=== PATIENT | female | born 1990 | race Caucasian/White ===

== ENCOUNTER 2022-07-28 10:15 | Outpatient (RCR) | payer BC, OTHER, SELFPAY ==
--- NOTE | 2022-06-02 12:57 | PT.OPDNX ---
[facility] Daily Note [facility] Daily Note Start: 12/22/21 16:17 Freq: Status: Active Protocol: Document 06/02/22 08:33 ARR (Rec: 06/02/22 09:37 ARR [id number]) E-signed By Gem Mclean DPT PT OP Daily Progress Note Visit Information Note Type Daily Note,Recert/Progress Note Visit Number 12 Cancellation Note Cancelled Documentation Eval 03/03/22 POC 03/03/22-06/02/21 Insurance Information Insurance Name [facility] Medical Diagnosis M62.08 separation of muscle ( nontraumatic), other site Treating Diagnosis R27.8 Lack of coordination ( muscle incoordination) M62.0 Separation of muscle ( nontraumatic) (Diastasis of muscle) N94.2 vaginismus Referring MD Joanne Rubio ([facility]) Subjective Subjective Feels she might have a hernia. Was in the car with the kids facing backward kiddo dropped quickly so she had to catch a weight. Feels like something popped in belly and is very tender. Feels like it's in belly button. Belly is tender to the touch. Hasn't tried to be too active so unsure if that increases it. Pain Comments -SLS -Hip hinge -Deadlift - Home Exercise Home Exercise Comments OTHER: -MOnitoring for upper ab gripping -Skin rolling upper abs 3-5 min prior to abdominal exercises Access Code: [email or web address] URL: [email or web address] Date: 12/22/2021 Prepared by: Gem Mclean Program Notes -Posture - elongation through spine, pulling through crown of head -RIbs stacked over pelvis Exercises Sidelying Thoracic and Shoulder Rotation - 1 x daily - 7 x weekly - 6-8 reps Diaphragmatic Breathing in Supported Child's Pose with Pelvic Floor Relaxation - 1 x daily - 7 x weekly - 6-8 reps Hands and Knees Breathing - 1- 2 x daily - 7 x weekly - 2 sets - 6-8 reps 90-90 or Supine Breathing - 1 x daily - 7 x weekly - 2 sets - 6-8 reps Objective Other/Pertinent Objective 06/02/22 -DR: 2-3 knuckle depth and 3.5 fingers at umbilicus / 1 knuckle depth and 2 fingers below umbilicus / 2 knuckle depth and 3 fingers above umbilicus -Very TTP right over naval but surrounding area of DR, greatest tenderness with greater depth -TA inhibition with inc'd upper ab gripping 05/20/22: -DR: 1st knuckle depth and 2 fingers at umbilicus / <!/2 knuckle depth and 1 fingers below umbilicus / <1/2 knuckle depth and 1.5 fingers above umbilicus Eval -DR: 2nd knuckle depth and 3 fingers at umbilicus / 1 knuckle depth and 2 fingers below umbilicus / 1 knuckle depth and 3 fingers above umbilicus Patient Instructed in Risks/Benefits Yes Therapeutic Exercise Therapeutic Exercise Minutes (minutes) 10 Therapeutic Exercise: To Restore -DR assessment as noted above Functional Status -Discussion of progress and POC -Discussion of PT recommendations for contacting provider for symptoms Manual Therapy Techniques Manual Therapy Minutes (minutes) 25 Manual Therapy Techniques MT: indicated for improving joint mobility, reducing tissue irritability, and improving range of motion. -Recti release -Oblique release bilat -STM with cupping over abdominal wall. STM into recti muscle bellies and obliques Neuromuscular Re-Ed Neuromuscular Reeducation Minutes ( 20 minutes) Neuromuscular Reeducation Comments Neuromuscular reeducation: Indicated to facilitate improved muscle firing and postural awareness through the use of tactile cues. Also to improve breathing mechanics. -TA on an exhale 3 x 6 reps -Abs with bent LE fallout 2 x 10 reps ea LE -Bridge x 8 reps, 10 x 5 holds -Unilat bridge 2 x 6 reps ea side -TA with alt LE march x 10 reps Treatment Minutes Timed Code Treatment Minutes 55 Total Treatment Time 55 Billing Units Manual Therapy Units 2 Neuromuscular Reeducation Units 1 Therapeutic Exercise Units 1 Assessment/Impression Assessment/Impression Pt having onset of abdominal pain - noting increased TA inhibition with TTP over area of linea alba greatest over umbilicus. TTP also greatest with increased depth. Does appear pain could be secondary to strain of myofascial tissues over area of linea alba from poor P mgmt and abdominal wall loading. But cannot rule out other medical contributions due to area of greatest TTP. Pt to message MD regarding symptoms and any further med mgmt needed. Did provide pt with KT strips for DR KTaping techniques. Pt to return to TA activation/ strength and increase x/wk working on TA activation. Pt to RTC in 2-3 wks, is on waitlist for cancellations. Pt agreeable with this plan Pt likely to benefit from PT beyond POC dates as she continues to require cues for motor recruitment patterns, posture/stability, and balance . Plan of Care Physical Therapy Goals STG (within 6 wks) 1)pt will initiate HEP without increased sx?s 2)Pt will isometrically activate TA and PFM with bottom up activation on at least x 15 consecutive reps to reduce downward pressure on abdominal wall and PF LTG (Within 12 wks) 1)Pt will be indep in HEP for director long term care mgmt. of sx?s 2)Pt will be able to generate tension along diastasis recti with depth not past 1st knuckle 3)Pt will be able to return to yoga, pilates, and walking without increased abdominal or low back symptoms. 4)Pt will report at least 70% improvement in sxs since start of therapy for improved ADLs 5) Pt will demonstrate proper coordination of motor recruitment patterns for PF then TA activation during dynamic UE/LE movements in all postures while maintaining diaphragmatic breathing pattern Daily Plan of Care Comments PLAN: -Reassess cancelling one visit and keeping others -Standing stability/balance exercises -Continue to progress core/ glut strength (review side plank, bridge, consider kneeling glut finder, quadruped knee lifts, sidelying clam, sidleying hip abduction, standing glut med wall press). Recertification Information Initial Certification Date 03/03/22 Recertification Start Date 06/02/22 Reasons to Continue Skilled Therapy Pt had been seen for abdominal strain, pelvic dysfunction, core weakness for 12 visits from 03/03/22 to 06/02/2022 during this episode of physical therapy. Focus of therapy on transverse abdominals and pelvic floor strengthening, and LE stretching. Interventions including self-care, therapeutic exercise, manual therapy, neuromuscular re- education. Pt had been doing very well progressing since evaluation. However, pt came to clinic this date reporting abdominal pain after lifting baby. Continued assessment revealed progression of DR from prior visit, TA inhibition, and TTP at area of DR including umbilicus. At this time cannot rule out other medical contributions, recommended contacting provider. Do feel component of sx's are secondary to myofascial strain of linea alba/DR with poor core bracing . Due to flare of symptoms, pt to benefit from extension of current plan of care 1x/wk x 6 visits after current session. Skilled PT is continued to be indicated for progression of strength, pain reduction, and return to PLOF Rehabilitation Potential Good Continued Plan of Care and Interventions Core/glut strengthening to improve functional mobility and lifting Provider Signature Shows Agreement With POC & Medical Necessity Physician Comment/Change Comment or Changes Physician NPI Number #
== END 2022-08-01 12:06 | disposition home or self-care (01) ==
PROVIDERS: Visit Provider Advanced Practice Midwife
DX: N94.2 Vaginismus (principal); Z51.89 Encounter for other specified aftercare
CPT/HCPCS: 97110; 97112; 97140; 97161

== ENCOUNTER 2022-11-04 13:54 | Outpatient (CLI) | payer BC, SELFPAY ==
--- NOTE | 2022-11-04 14:00 | CRLHL7_ITS ---
For Patients: As a result of the Cures Act, medical imaging exams and procedure reports are released immediately into your electronic medical record. You may view this report before your referring provider. If you have questions, please contact your health care provider. INDICATION: First trimester scan, establish dates. COMPARISON: None. TECHNIQUE: Real-time palacios-scale imaging of the pelvis was performed. FINDINGS: Sonographic imaging demonstrates a single living intrauterine gestation. The embryo demonstrates a regular cardiac rate measuring 159 beats per minute. The embryo`s crown-rump length measurement of 1.6 cm corresponds to a gestational age of 8 weeks 0 days with a sonographic due date of June 16, 2023. There is a normal-appearing yolk sac measuring 2.8 mm. There are no gross abnormalities noted within the embryo at this early state of development. The placenta has not yet developed. The gestational sac has a normal appearance and there is no evidence of a perigestational hemorrhage. The amount of fluid within the sac appears appropriate for gestational age. The cervix is closed. The myometrium appears normal. The ovaries are of normal size. The right ovary measures 4.0 x 2.0 x 3.3 cm and contains small corpus luteum cyst of measuring 2.3 x 1.5 x 2.3 cm. The left ovary measures 3.6 x 1.6 x 3.1 cm. There are no suspicious fluid collections noted in the cul-de-sac. IMPRESSION: Normal first trimester OB ultrasound exam. Gestational age calculated at 8 weeks 0 days with a sonographic due date of June 16, 2023. Dictated by Tejas Benoit MD @ 11/04/2022 4:23:01 PM (Electronically Signed)
== END 2022-11-04 13:55 | disposition home or self-care (01) ==
LOC: US 13:54
PROVIDERS: Visit Provider Advanced Practice Midwife
DX: Z34.91 Encounter for supervision of normal pregnancy, unspecified, first trimester (principal); Z3A.08 8 weeks gestation of pregnancy
CPT/HCPCS: 76817; 84443; 86592; 86703; 86762; 86787; 86803; 86850; 86900; 86901; 87086; 87340

== ENCOUNTER 2023-01-26 12:56 | Outpatient (CLI) | payer BC, SELFPAY ==
--- NOTE | 2023-01-26 13:00 | CRLHL7_ITS ---
For Patients: As a result of the Century Cures Act, medical imaging exams and procedure reports are released immediately into your electronic medical record. You may view this report before your referring provider. If you have questions, please contact your health care provider. OBSTETRICAL ULTRASOUND, 01/26/2023 CLINICAL HISTORY: anatomy survey. ANDREINA by LMP: 06/16/2023. GA: 19 w, 6 d. FINDINGS: position: Multiple positions. Cervix: Visualized. Technique: Transabdominal. Length of closed cervix: 4.6 cm. Placenta/cord: Anterior. Technique: Transabdominal. Placenta tip to internal OS: 7.4 cm. Umbilical Cord: 3-vessel cord. Placenta insertion: Central. Amniotic Fluid: 4.1 cm SDP (greater than/equal to: 2- less than 8 cm). SURVEY: Observed Structures Calvarium/Spine: Cerebellum: 2.1 cm, 20 w 5 d. Cisterna Magna: 5.6 mm. Nuchal Fold: 5.2 mm. Lateral Ventricle: 6.5 mm. CSP: Yes. Midline Falx: Yes. Choroid Plexus: Yes. Spine: Yes. Abdomen: Stomach: Yes. Abd Cord Insertion: Yes. Urinary Bladder: Yes. Kidneys: Yes. Diaphragm: Yes. Face: Nose/lips: Yes. Orbital view: Yes. Profile: Yes. Limbs: Upper Extremities: Yes. Lower Extremities: Yes. Hands: Yes. Feet: Yes. Vascular: Four-Chamber Heart: Yes. LVOT: Yes. RVOT: Yes. 3VV: Yes. 3VTV: Yes. BPD: 4.7 cm. 20 w 1 d, 63 percent. HC: 17.6 cm. 20 w 1 d, 54 percent. AC: 16.3 cm. 21 w 3 d, 88 percent. FL: 3.0 cm. 19 w 3 d, 26 percent. FL/AC: 8.6 percent. HC/AC Ratio: 1. Heart rate: 145 beats per minute. age by this US: 20 w 3 d. ANDREINA by this US: 06/12/2023 EFW: 352 g. Weight: 0 lbs, 12 oz. Percentile by ANDREINA: 77 percent. IMPRESSION: Single live intrauterine gestation. No gross anomalies visualized. Lakeisha Caruso M.D. [email or web address] Transcribed: 9:35 adavonte PRICE/Dictated by: Lakeisha Caruso MD @ 01/27/2023 6:47:00 AM (Electronically Signed)
== END 2023-01-26 12:57 | disposition home or self-care (01) ==
LOC: US 12:57
PROVIDERS: Visit Provider Advanced Practice Midwife
DX: Z34.92 Encounter for supervision of normal pregnancy, unspecified, second trimester (principal); Z3A.19 19 weeks gestation of pregnancy
CPT/HCPCS: 76805

== ENCOUNTER 2023-03-28 11:00 | Outpatient (CLI) | payer BC, SELFPAY | END 2023-03-28 11:01 | disposition home or self-care (01) | LOC: NFLDREF 03-30 22:20 | PROVIDERS: Visit Provider Advanced Practice Midwife | DX: Z34.93 Encounter for supervision of normal pregnancy, unspecified, third trimester (principal); Z3A.28 28 weeks gestation of pregnancy | CPT/HCPCS: 86592 ==

== ENCOUNTER 2023-04-10 12:50 | Outpatient (CLI) | payer BC, SELFPAY ==
--- NOTE | 2023-04-10 13:00 | CRLHL7_ITS ---
For Patients: As a result of the Century Cures Act, medical imaging exams and procedure reports are released immediately into your electronic medical record. You may view this report before your referring provider. If you have questions, please contact your health care provider. INDICATION: MEASURING LARGE FOR DATES COMPARISON: 01/26/2023 TECHNIQUE: Real time palacios scale imaging of the fetus was performed. FINDINGS: Sonographic imaging demonstrates a single living intrauterine gestation. Fetus demonstrates a regular cardiac rate of 134 beats per minute. Fetus has a vertex position. The placenta lies anteriorly. Amniotic fluid volume appears normal and there is a single deepest vertical pocket: 5.4 cm. The estimated weight is 1741gm which lies at the 69th %. On the prior OB ultrasound exam dated 01/26/2023 the estimated weight was at the 77th%. BPD 39th percentile. HC 56th percentile. AC 85th percentile. FL 33rd percentile. The HC/AC ratio measures 1.04 range (0.96-1.17). IMPRESSION: Sonographic gestational age 31 weeks 1 day and sonographic due date 06/11/2023. Sonographic age 5 days ahead of the clinical age. Estimated weight 69th percentile. Abdominal circumference 85th percentile. Dictated by Nando Will MD @ 04/12/2023 6:38:59 AM (Electronically Signed)
== END 2023-04-10 12:51 | disposition home or self-care (01) ==
LOC: US 12:51
PROVIDERS: Visit Provider Advanced Practice Midwife
DX: O36.63X0 Maternal care for excessive fetal growth, third trimester, not applicable or unspecified (principal); Z3A.31 31 weeks gestation of pregnancy
CPT/HCPCS: 76816

== ENCOUNTER 2023-05-24 11:31 | Outpatient (CLI) | payer BC, SELFPAY ==
[2023-05-25 13:07] LABS: Strep B DNA Probe Negative (Negative); Strep B Susceptibility Needed? No
== END 2023-05-24 11:32 | disposition home or self-care (01) ==
LOC: NFLDREF 11:31
PROVIDERS: Visit Provider Advanced Practice Midwife
DX: Z34.93 Encounter for supervision of normal pregnancy, unspecified, third trimester (principal)
CPT/HCPCS: 87081; 87653

== ENCOUNTER 2023-05-31 13:05 | Outpatient (CLI) | payer BC, SELFPAY ==
--- OUTSIDE RECORDS SUMMARY | 2023-05-31 13:17 | XMS_ITS | Clinical Summary ---
Author Name Unknown Organization [employer] [facility] Address [place], [place] [address] Care Team Providers Care Intelligence Director Name Role Phone [facility] Primary Care Provider Unavailabl e Allergies No known active allergies Medications Medication Sig Dispensed Refills Start Date End Date Status Cholecalciferol, Vitamin D3, (VITAMIN D-3) 2,000 unit tablet Take 1 tablet by mouth once daily. 0 11/17/2017 Active calcium carbonate CHEWABLE (TUMS E-X) 750 mg chewable tablet Daily as needed 0 A ctive cholecalciferol, Vitamin D3, 2,000 unit tablet Daily 0 Active meclizine (ANTIVERT) 25 mg tabletIndications:Verti go Take 1 Tablet (25 mg) by mouth 3 times daily if needed for Vertigo. 20 Tablet 0 06/16/2022 Active ondansetron (ZOFRAN ODT) 4 mg disintegrating tabletIndications:Influ damaso-like illness Place 1 Tablet (4 mg) on the tongue every 8 hours if needed for Nausea/Vomiting . 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 ? 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 ? 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 Normal HSG 3 IUIs and then did a retrieval in july and then did a frozen transfer due to high estrogen levels. Did IVF 09/2017 and has 2 embryos left. PCOS (polycystic ovarian syndrome) 08/05/2015 High risk , antepartum Immunizations Name Administration Dates Next Due DTP 05/25/1992,06/10/1991,04/08/1991 ,02/04/1991 DTaP 11/06/1995 HIB PRP-OMP (PedvaxHIB) 03/16/1992,04/08/1991, Hepatitis A (Adult) 12/02/2009 Hepatitis B (Peds) 12/18/1992,07/06/1992, 993 Human Papilloma Virus Vaccine 07/31/2007, 007,12/27/2006 07/01/2007 Influenza, IIV4 03/20/2017,06/03/2015 MMR 09/16/2002,03/16/1992 Meningococcal Vaccine (Menveo) 12/02/2009 Oral Polio Vaccine 11/06/1995,05/25/1992, 991,02/04/1991 Td (Age >=7 Years) 09/16/2002 Tdap 03/20/2017 Family History Medical History Relation Name Comments Other Father in far m accident, adopted Mayberry syndrome Maternal Aunt Kalyani Diabetes Maternal Grandfather Heart Disease Maternal Grandfather Cancer Maternal Grandmother undeter mined Diabetes Maternal Grandmother d at the age of 82 Good Health Mother Unknown Paternal Aunt Unknown Paternal Grandfather Unknown Paternal Grandmother Unknown Paternal Uncle Anxiety disorder Sister [place] Depression Sister [place] Personality disorder Sister [place] Relation Name Status Comments Father Maternal Aunt Kalyani Alive Maternal Grandfather Alive Maternal Grandmother Mother Alive Paternal Aunt Father adopted Paternal Grandfather Father adopted Paternal Grandmother Father Adopted Paternal Uncle Father adopte d Sister [place] Alive Social History Tobacco Use Types Packs/Day Years Used Date Smoking Tobacco: Never Smokeless Tobacco: Never Tobacco Cessation:Counseling Given: Yes Alcohol Use Standard Drinks/Week Comments No 0 (1 standard drink = 0.6 oz pur e alcohol) rarely Sex and Gender Information Value Date Recorded Sex Assigned at Not on file Gender Identity Not on file Sexual Orientation Not on file Obstetrics History Para Term AB IAB SAB Ectopic Multiple Livin g Live Births 1 0 0 0 0 0 0 0 0 0 Date Outcome GA Total Labor Labor/2nd/3rd Weight Sex Delivery Anes PTL Nataly A1 A5 Name Cl in Last Filed Vital Signs Vital Sign Reading Time Taken Comments Blood Pressure 95/62 06/16/2022 8:04 AM CONNIE SCRATCHER Pulse 110 06/16/2022 8:04 AM CONNIE SCRATCHER Temperature 37.1 ??C (98.8 ??F) 06/16/2022 8:04 AM CS T Respiratory Rate 18 06/16/2022 8:04 AM CONNIE SCRATCHER Oxygen Saturation 96% 06/16/2022 8:04 AM CONNIE SCRATCHER Inhaled Oxygen Concentration - - Weight 84.8 kg (187 lb) 06/16/2022 8:04 AM CONNIE SCRATCHER Height 183 cm (6' 0.05) 11/17/2017 8:16 AM CDT Body Mass Index 25.33 11/17/2017 8:16 AM CDT Plan of Treatment Health Maintenance Due Date Last Done Comments COVID-19 vaccine series (#1) 06/06/1991 Hepatitis C screening for age 18-79 2008 Depression screening for age 12+ 03/20/2018 03/20/2017, 07/01/2015 BMI (ht and wt on same day) for age 18+ 11/17/2018 11/17/2017, 11/06/2017, 07/03/2017, Additional history exists Influenza for age 9-49 01/20/2023 03/20/2017, 2015 Pap test for age 21-65 03/17/2023 0, 07/20/2016 (Completed outside of [facility]), 10/25/2012 (Completed outside of [facility]) Tetanus booster 03/20/2027 03/20/2017, 09/16/2002 Tdap Completed 03/20/2017 HIV for age 15-65 Completed 11/17/2017 Pneumococcal series for age 6-64 Aged Out No longer eligible based on patient's age to complete this topic Care Teams Intelligence Director Relationship Specialty Start Date End Date Lisa Galindo PCP - General 11/11/16
[2023-05-31 13:19] VITALS: PULSE 95; O2SAT 96
--- NOTE | 2023-05-31 15:34 | PC.OBNST ---
NST Note NST Note Start: 05/31/23 13:15 Freq: ONCE Status: Active Protocol: Document 05/31/23 15:00 WK (Rec: 05/31/23 15:24 WK [id number]) NST Note 4 Para (# of births) 3 EDC 06/16/23 Gestational Age In Weeks & Days 37 Weeks & 5 Days Patient Presented with Complaint(s) of Other Other Complaints C/O feeling dizzy and lightheaded. Reactive Yes RN Aga Date 05/31/23 Reactive Yes RN JSchuhmac Date 05/31/23 OB NST charge Yes Complete NST Note via Write Note Yes The provider's electronic signature indicates the NST is reactive/appropriate for gestational age. *Note to provider: If an addendum is required, open the patient's chart and click on the note under the Nurse/Allied Health tab.
== END 2023-05-31 14:50 | disposition home or self-care (01) ==
LOC: OB OUT 13:05 → OB 13:14
PROVIDERS: Visit Provider Advanced Practice Midwife
DX: Z34.93 Encounter for supervision of normal pregnancy, unspecified, third trimester (principal); Z3A.37 37 weeks gestation of pregnancy
CPT/HCPCS: 59025; G0463

== ENCOUNTER 2023-06-06 15:31 | Inpatient (IN) | payer BC, SELFPAY ==
[2023-06-06] VITALS (14 sets, daily range): BP systolic 97–133; BP diastolic 57–72; PULSE 63–104; RESP 16; TEMP 36.4–36.8; O2SAT 97–99; BMI 26.4
--- NOTE | 2023-06-06 15:09 | P.LDBA_ITS ---
Subjective History of Present Illness Time Seen by Provider: 15:10 Date Seen: 06/06/23 Specific Issues/Plans H&P done by DOMINGO Ernst on 05/31/2023 1. Hx of infertility r/t PCOS. 1st IVF, spontaneous 2nd, 3rd, current 2. Hx of oligo with first . u/s ordered: SDP 5.4 at 30 wks 3. 2nd baby breech, turned prior to ECV though. Vtx at 32 wks 4. Measuring large for dates at 28 weeks. u/s ordered for growth, will also check fluid r/t hx of oligo 30 wks: EFW 69%, SDP 5.4 Pap due pp COVID: declines Flu: patient does not get this TDAP: 04/10/23 RSV: declines 32wk Mental Health: Comments: Graciela is being admitted to Labor and Delivery for active labor. She is a 32 year old G 4 P 3 at?38.4 weeks gestation. Her full history and physical was dictated by Bill Rubio on 05/31/2023. Please see this for details. She states ctx started sometime this morning. They have not become more intense at this time, but are not going away, and her previous labor was fast. She denies SROM at this time. ? She is coping well with labor pain/contractions. Her mom is with her for support. She is planning non pharmacologic methods and water for pain ma nagement. OB - Problem Based A/P Additional Plan (1) Active labor at term: Status: Acute (2) Supervision of other normal : Status: Acute (3) Uterine contractions: Status: Acute Plan Assessment:?? at 38.4 weeks gestation?? GBS negative Patient is coping well with challenges of labor.?? Labor type: Spontaneous, Active labor? complicated by: -Hx of oligo with first -measuring large for dates at 28 weeks, EFW at 30 weeks:69% ? Plan:?? * Admit to L & D? * IV access: not needed at this time * Monitoring:intermittent per protocol at this time * Candidate for analgesia of choice.? Planning non pharmacologic methods for pain management * Desires waterbirth.? Consent signed and Hep C negative * Expectant management at this time * Anticipate progress to NVD Delivery/Labor/Induction Plan Plan: expectant management OB Exam Physical Exam Vital signs: Pulse BP Pulse Ox 104 H 124/70 99 06/06/23 15:08 06/06/23 15:08 06/06/23 15:05 Narrative: VSS, afebrile? General Appearance:? Calm, cooperative.? No acute distress.? Normal affect.? Psychiatric Exam: Alert and oriented, appropriate affect? HEENT: normocephalic, neck supple, full ROM? Respiratory:? Symmetrical chest wall movement.? Normal respiratory effort.? Clear to auscultation? Cardiac:? regular rate and rhythm? Abdomen: Gravid, non tender? Extremities:? normal and trace edema? Skin: warm, dry.??? Ctx:? Q 6 min apart.? Mild - mod? FHTs:? Baseline: 145.? Variability: moderate.?? Accels: present.??? Decels:? none.? SVE: 5/90/0? Membranes: intact? Detailed Labor and Delivery Exam Patient Gravid: Yes
[2023-06-06] MEDS: OXYTOCIN 10 UNIT/ML INJ IM (22:12)
[2023-06-06] MEDS: LIDOCAINE 1 % PF 30 ML INJECTION (22:33)
--- NOTE | 2023-06-06 22:47 | W.PM.VAGDE_ITS ---
OB Procedure Vag Delivery Mother Details Mother Details: The patient is a 32 year-old, 4, now Para 4, admitted on 06/06/23 at 38.4 weeks gestation. : 4 Para: 4 Weeks Gestation: 38.4 Admission Date: 06/06/23 Additional Details Amniotic Membrane Status: AROM Amniotic Membrane Rupture Date: 06/06/23 Amniotic Membrane Rupture Time: 21:35 Amniotic Membrane Fluid Description: Clear Analgesia/Anesthesia Type: Local Waterbirth: Yes Pitcoin: No (PP only for AMTSL) Intrapartal Events: None Delivery augmentation: rupture of membranes Labor Onset: 10:00 Complete: 21:54 (Assumed with pushing) Pushin:54 Heart: heart tones during second stage were WNL per doppler. No audible decels noted. Delivery Details Delivery Date: 06/06/23 Delivery Time: 22:08 Route of delivery: Gender: Male Infant Viability: Alive; Heart Rate Present Position at Delivery: OP Delivery Details: Lyndsey labored in the tub this evening. Ctx slightly more intense, but still somewhat spaced out and not strong. SVE 6 cm. Options reviewed, and she agreed with AROM to encourage labor. AROM for moderate amount of clear fluid. She then got back in the tub, and ctx noted to be quite a bit more intense. Spontaneous pushing noted at 2154, and assumed to be complete. She pushed on hands and knees, and noted shortly after. ? Spontaneous vaginal?delivery?at 2208 of?a viable?male infant.??Delivered in shantal nick OP position.??Shoulders delivered easily.? FOB assisted with delivery once shoulders delivered. She delivered on hands and knees, and then was assisted to turn around in the tub. Spontaneous cry noted, more vigorous with stimulation.?? placed on maternal abdomen.??Cord?was clamped and cut after a 5+ minute delay.? Shoulder dystocia: no? Nuchal cord: no? Meconium stained?fluid: no? Water : Yes? ? ? 8 at 1 minute and 9 at 5 minutes.? ? Placenta delivered spontaneously and?complete?at 2221 with a?3 vessel?cord.?? Bleeding controlled with fundal massage and?pitocin?for AMTSL.? ? Mother and infant were stable after?delivery.? ? Lacerations:? 1st degree, repaired with 3-0?vicryl.?? ? Bleeding?post?delivery?was: minimal. ?The fundas was firm to palpation.? Blood loss: 400?mL.?(100 QBL, 300 EBL) Blood loss measurement type: QBL/EBL?? ? Sponge,?lap?and needles counts are correct.? Mother and infant were stable after?delivery.? 1 Minute Interval Total Score: 8 5 Minute Interval Total Score: 9 Additional Details Shoulder Dystocia: No Placenta Delivery Time: 22:21 Placental Delivery Description: Spontaneous Delivery repair: Vicryl Procedure Done: Global Blood Loss: 400 Laceration: Perineal - 1st Degree Blood Loss Measurement Type: EBL Bakri Used: No Sponge/Need Count Correct: Yes Cord Vessel Description: 3 Vessels Event Summary Status: Mother and infant were stable after delivery. Disposition: floor
[2023-06-06] MEDS: IBUPROFEN 600 MG TABLET PO (23:21)
[2023-06-07] VITALS (11 sets, daily range): BP systolic 100–116; BP diastolic 55–74; PULSE 68–96; RESP 16; TEMP 36.4–36.8; O2SAT 96–98
[2023-06-07] MEDS: ACETAMINOPHEN 500 MG TABLET 1000 MG PO ×2 (01:35→07:52)
[2023-06-07] MEDS: IBUPROFEN 600 MG TABLET PO ×3 (04:43→19:39)
[2023-06-07] MEDS: DOCUSATE SODIUM 100 MG CAPSULE PO (07:51)
--- NOTE | 2023-06-07 07:54 | PM.OBPNVD1 ---
OB - PN:Subj Subjective Date Seen: 06/07/23 Narrative: Graciela is a 32 y.o. who was admitted to [facility] for spontaneous onset of labor. ?She had an uncomplicated NVD.?The patient feels well. ?The pain is well controlled with current medications. ?She has no new complaints. ?She is breast feeding and reports things are going well.? the patient has done well.? Vitals have been stable.? She has remained afebrile.? Has a good appetite, is tolerating a general diet. ?She is voiding without difficulty.? She is passing gas and has not had a bowel movement.? She is ambulating and denies any dizziness.? Has small amount of rubra lochia. OB - PN: Obj Exam Physical Exam: Vital signs: Temp Pulse Resp BP Pulse Ox O2 Del Method 98.1 F 96 16 116/71 97 Room Air 06/07/23 04:29 06/07/23 04:29 06/07/23 04:29 06/07/23 04:29 06/07/23 04:29 06/07/23 04:29 Narrative: GENERAL APPEARANCE:? normal affect, alert, no distress MOOD:? appropriate CHEST:? clear to auscultation HEART:? regular rate and rhythm ABDOMEN:? soft, non-tender the uterine fundus is at Umbilicus, Midline and is appropriate for the stage of recovery. PERINEUM:? mild edema of the perineum, there is a Perineal Laceration,?1st degree, that is healing well. EXTREMITIES:? normal and no edema OB - PN: A/P Delivery Assessment and Plan (1) care and examination immediately after delivery: Status: Acute (2) Lactating mother: Status: Acute Plan day: 1 Plan: routine care Comments: Routine care Lactating mother, may see if desired Anticipate discharge tomorrow.
[2023-06-08] MEDS: IBUPROFEN 600 MG TABLET PO (07:00)
[2023-06-08 07:30] VITALS: BP 111/77; PULSE 65; RESP 16; TEMP 36.6; O2SAT 97
--- NOTE | 2023-06-08 08:48 | PM.OBDSVD1 ---
DS: Providers Provider Date Seen: 06/08/23 Date of admission: 06/06/23 15:31 Primary care physician: Not a Local Provider Admitting Clinician: Joycelyn Khan CNM Attending Physician on discharge: Joycelyn Khan CNM Date of Discharge: 06/08/23 DS: Diagnosis Discharge Diagnosis (1) Lactating mother: Status: Acute (2) care following vaginal delivery: Status: Acute Exam Narrative: Exam Narrative: GENERAL APPEARANCE:? normal affect, alert, no distress? MOOD:? appropriate? CHEST:? clear to auscultation and percussion? HEART:? regular rate and rhythm? ABDOMEN:? soft, non-tender the uterine fundus is 2 cm Below Umbilicus, Midline and is appropriate for the stage of recovery. ? PERINEUM:? mild edema of the perineum, there is a 1st degree that is healing well.? EXTREMITIES:? normal and no edema? Patient has no complaints? No active bleeding?? Doing well? She is requesting discharge home.? Const: Vital Signs, click to edit/add: Vital Signs - 24 hr 06/07/23 11:40 06/07/23 15:40 06/07/23 19:42 Temperature 98.0 F 98.2 F 97.9 F Pulse Rate [Pulse Oximeter] 74 77 73 Respiratory Rate 16 16 16 Blood Pressure [Le ft Arm] 109/71 116/74 102/65 Pulse Oximetry 96 96 96 Oxygen Delivery Me thod Room Air Room Air Room Air 06/07/23 23:57 06/08/23 07:30 Temperature 97.8 F Pulse Rate [Pulse Oximeter] 68 65 Respiratory Rate 16 16 Blood Pressure [Le ft Arm] 100/68 111/77 Pulse Oximetry 97 97 Oxygen Delivery Me thod Room Air Room Air Documenting provider has reviewed patient's vital signs: yes OB - DS: Summary Hospital Course Hospital Course: The patient is a 32 year old G [] P [] at [] weeks gestation that was admitted to the Center on 06/06/23 for []. She had an [uncomplicated/complicated] [vaginal/] delivery. She delivered a viable [male/female] infant. She is [breast/bottle] feeding. the patient has done well. The patient feels well.? The pain is well controlled with current medications.? She has no new complaints.? Urinary output is adequate and she is voiding without difficulty.? Has a good appetite, is tolerating a general diet, is passing flatus, and has not had a bowel movement.? Has small amount of rubra lochia.? She is ambulating well.?She is and feel that it is going well. Her partner is planning a vasectomy for control. Encouraged her to use condoms or a diaphragm until that is complete. Peripartum Data delivery method: Vaginal Laceration description: Perineal - 1st Degree complications: none Infant Gender: Male Discharge Plan: Home Status at Discharge Functional status at discharge: independent ambulation Overall status at discharge: patient is progressing back to baseline Time Spent with Patient Time attestation: Total time spent providing and/or coordinating discharge services: Discharge Plan Discharge Disposition: Home, Self-Care Date of Admission: 06/06/23 15:31 Attending Provider on Discharge: Regi Mahmood Primary Care Provider: Provider,Not a Local Condition: Stable Anticipated Discharge Date/Time: 06/08/23 10:00 Discharge Medications: New docusate sodium 100 mg Capsule 100 mg PO DAILY Qty: 60 0RF Rx Instructions: Take 1-2 tablets daily as needed for constipation. ibuprofen 600 mg Tablet 600 mg PO Q6H PRNQty: 20 0RF Continued Gummies 400 mcg-35 mg- 25 mg-5 mg tablet,chewable 1 tab PO DAILY calcium carbonate [Tums] 300 mg (750 mg) tablet,chewable 300 mg PO DAILY Discharge Orders: Discharge Order (Routine); Ordered 06/08/23 Ordered By: Regi Mahmood Patient Education: OB Over the Counter Medication Information, OB Vaginal/Breast Feeding Additional Instructions: Discharge instructions were reviewed with the patient including signs and symptoms of infection and home going medications.? Lifting Restrictions: 20 pounds for 6? weeks? ?? Do not drive while taking narcotic pain meds.? Off Work or School for 6 weeks.? ?? Symptoms to report to doctor:? -Bleeding that saturates more than one pad per hour? -Passing clots larger than the size of a golf ball? -Pain not relieved by prescribed medication? -Fever above 100.4 degrees Fahrenheit? -A foul vaginal odor? -Difficulty in emotions, mood and functions? -Thoughts of hurting yourself and/or ? -Painful, reddened area in your breast? -Any drainage, redness or tenderness in your IV/epidural site? -Severe headache that doesn't improve after taking medications? -Changes in vision, including temporary loss of vision, blurred vision, and/or light sensitivity? -Upper abdominal pain (usually under ribs on the right side)? -Decrease in urination or painful, frequent urinating? -Chest pain? -Shortness of breath? -Tenderness or pain with redness and/swelling in the calf(s) of your leg? ?? Follow Up in clinic in 2 and 6 weeks.? ?? consultation services are available to all mothers and babies for the first year after delivery.? To make an appointment, please call [phone].? Activity Level: Activity as Tolerated Discharge Diet: Regular Follow Up Appointments: [facility] [Provider Group] Provider,Not a Local [Primary Care Provider] - Forms: MyHealth Info Instructions Discharge Comments: Patient left ambulatory. Respirations even and unlabored with no signs of acute distress noted.
[2023-06-08] MEDS: DOCUSATE SODIUM 100 MG CAPSULE PO (09:26)
== END 2023-06-08 11:25 | disposition home or self-care (01) | DRG 560 ==
LOC: OB OUT 15:32 → OB 15:32
PROVIDERS: Admitting Provider Advanced Practice Midwife; Visit Provider Advanced Practice Midwife
DX: O70.0 First degree perineal laceration during delivery (principal); Z3A.38 38 weeks gestation of pregnancy; Z37.0 Single live birth
CPT/HCPCS: A9270; J2001; J2590

== ENCOUNTER 2024-07-11 11:00 | Outpatient (CLI) | payer BC, SELFPAY ==
--- NOTE | 2024-07-11 11:15 | CRLHL7_ITS ---
For Patients: As a result of the Century Cures Act, medical imaging exams and procedure reports are released immediately into your electronic medical record. You may view this report before your referring provider. If you have questions, please contact your health care provider. INDICATION: Left calf pain and lump. TECHNIQUE: Ultrasound venous duplex lower left extremity. Compression venous exam was performed using palacios-scale, color Doppler, and spectral Doppler analysis. COMPARISON: None. FINDINGS: Sonographic imaging demonstrates the left common femoral, deep femoral, superficial femoral, popliteal, posterior tibial, peroneal, greater saphenous and contralateral right common femoral veins to be fully compressible with normal color Doppler blood flow. Focused imaging over an area of interest/lump shows no discrete ultrasonographic abnormality. IMPRESSION: 1. No evidence of left lower extremity deep venous thrombosis. 2. No ultrasound abnormality evident over the area of interest in the left calf. Dictated by Cleve Weir MD @ 07/11/2024 12:19:05 PM Dictated by: Cleve Weir MD @ 07/11/2024 12:19:18 (Electronically Signed)
== END 2024-07-11 11:01 | disposition home or self-care (01) ==
PROVIDERS: Visit Provider Family Medicine
DX: M79.662 Pain in left lower leg (principal)
CPT/HCPCS: 93971

== ENCOUNTER 2024-12-25 09:55 | Outpatient (CLI) | payer BC, SELFPAY | END 2024-12-25 09:56 | disposition home or self-care (01) | LOC: NFLDREF 09:56 | PROVIDERS: Visit Provider Advanced Practice Midwife | DX: N93.9 Abnormal uterine and vaginal bleeding, unspecified (principal) | CPT/HCPCS: 84443 ==